=== PATIENT | female | born 1990 | race Caucasian/White ===

== ENCOUNTER 2022-02-24 11:12 | Emergency (ER) | END 2022-02-24 13:50 | disposition home or self-care (01) | DX: R10.30 Lower abdominal pain, unspecified (principal); N83.202 Unspecified ovarian cyst, left side; J45.909 Unspecified asthma, uncomplicated | CPT/HCPCS: 99284; 96374; 96375; 76856; 80048; 81001; 84703; 85025; 36415; 96376; J1885; J2405; J1170 ×2; J2270 ==